=== PATIENT | male | born 1980 | race Caucasian/White ===

== ENCOUNTER 2017-08-30 06:34 | Emergency (ER) | payer OTHER ==
[~2017-08-30] VITALS: Ht 172.7 cm; Wt 56.7 kg
--- NOTE | ~2017-08-30 | EKG ---
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
[2017-08-30] MEDS ORDERED: XANAX1 MG PO (06:42)
[2017-08-30] MEDS ORDERED: CELEXA20 MG PO (06:42)
[2017-08-30 06:58] LABS: ABSOLUTE BASOPHILS 0.1 thou/uL (0.0-0.2); ABSOLUTE EOSINOPHILS 0.1 thou/uL (0.0-0.7); ABSOLUTE MONOCYTES 0.6 thou/uL (0.0-1.2); ABSOLUTE NEUTROPHILS 12.3 thou/uL (1.6-8.1); BASOPHILS 0.9 %; EOSINOPHILS 0.9 %; HEMATOCRIT 37.5 % (42.0-52.0); HEMOGLOBIN 12.6 gm/dL (14.0-18.0); LYMPHOCYTES 13.2 %; MCH 31.5 pg (26.0-34.0); MCHC 33.5 g/dL (28.0-37.0); MONOCYTES 4.1 %; MPV 7.6 fl. (7.2-11.1); NUCLEATED RBCS 0 /100WBC; PLATELET COUNT* 288 thou/uL (150-400); POLYS 80.9 %; RBC 3.99 mil/uL (4.50-6.00); RDW-CV 14.7 % (10.5-14.5); WBC 15.2 thou/uL (4.0-11.0)
[2017-08-30 07:07] LABS: ANION GAP 11 mmol/L (7-16); BUN 10 mg/dL (7-18); CALCIUM 8.8 mg/dL (8.5-10.1); CHLORIDE 104 mmol/L (98-107); CO2 24 mmol/L (21-32); CREATININE 0.8 mg/dL (0.6-1.3); GLUCOSE 117 mg/dL (70-99); POTASSIUM 3.6 mmol/L (3.5-5.1); SODIUM 139 mmol/L (136-145)
[2017-08-30 07:10] LABS: INR 1.2; PROTIME 11.4 Seconds (9.20-11.50)
[2017-08-30 07:18] LABS: ALBUMIN 3.6 g/dL (3.4-5.0); ALKALINE PHOSPHATASE 40 U/L (46-116); LIPASE 86 U/L (73-393); NT-PRO BRAIN NAT PEPTIDE 40 pg/mL (<300); SGOT 15 U/L (15-37); SGPT 17 U/L (30-65); TOTAL BILIRUBIN 0.6 mg/dL (<0.1-1.0); TOTAL PROTEIN 6.8 g/dL (6.4-8.2); TROPONIN-I LEVEL <0.06 ng/mL (<0.06)
[2017-08-30] MEDS ORDERED: ZPAK PO (08:50)
[2017-08-30 09:15] VITALS: BP 100/57
--- NOTE | 2017-08-31 18:40 | EKG ---
[place] [address] ELECTROCARDIOGRAM REPORT Name: YADY GÓMEZ JR Room: [facility]#: [id number] Admission: 08/30/17 Attend Phys: Discharge: 08/30/17 Date of : [birth year] Report #: [id number] THIS REPORT FOR: //name// [facility] ED Test Date: 2017-08-30 Test Time: 08:41:16 Pat Name: YADY GÓMEZ Department: Room: Gender: Painting Contractor: [place] : 1980 Requested By: Jed Johnson Order Number: [id number] MD: Say Rivera Measurements Intervals [place] Rate: 79 P: 69 AL: 138 QRS: 72 QRSD: 87 T: 64 QT: 389 QTc: 447 Interpretive Statements Sinus rhythm Baseline wander in lead(s) V6 No previous ECG available for comparison Electronically Signed On 08-31-2017 18:40:13 CDT by Say Rivera [email or web address] <ELECTRONICALLY SIGNED> By: Say Rivera MD, [facility] 08/31/17 [id number] Say Rivera MD, FACC /EPI
== END 2017-08-30 09:30 | disposition home or self-care (01) ==
LOC: M.ERS 06:34
PROVIDERS: Emergency Medicine
DX: R07.9 Chest pain, unspecified (principal); F17.210 Nicotine dependence, cigarettes, uncomplicated